=== PATIENT | male | born 1985 | race Caucasian/White ===

== ENCOUNTER 2017-11-20 05:13 | Day surgery (SDC) | payer BC ==
[2017-11-05 13:51] VITALS: BMI 30.5
[2017-11-20] MEDS ORDERED: ROPIVACAINE HCL 0.5% 30ML VIAL ONE (07:58)
--- NOTE | 2017-11-20 08:16 | HP ---
Satellite [facility] - Chief Complaint Chief Complaint: left shoulder pain, instability - Past Medical History Allergies/Adverse Reactions: Allergies Allergy/AdvReac Type Severity Reaction Status Date / Time No Known Drug Allergies Allergy Verified 11/05/17 13:43 - Current Medications Current Medications: Home Medications Medication Instructions Recorded Oxycodone HCl/Acetaminophen 1 - 2 tab PO Q6H #50 tab MDD 8 11/20/17 [Percocet 5-325 mg Tablet] Satellite Physical Exam - Physical Examination Vital Signs: Vital Signs Period Temp Pulse Resp BP Sys/Nicole Pulse Ox Last 24 Hr 97.9 F 72 18 131/76 98 General Appearance: Well Nourished, Well Developed, Alert & Oriented x3 ENT: Clear Lung: Normal air movement Heart: Regular rate & rhythm Extremities: Other (left shoulder- + ttp, decr rom, + apprehension, + cruzito, + obriens, nvi MRI + labral tear) Neurological: Intact, Alert, Oriented Satellite Impression/Plan - Impression/Plan Impression: left shoulder internal derangement Operative Procedure: left shoulder arthroscopy with labral repair Date to be Performed: 11/20/17
[2017-11-20] MEDS ORDERED: ceFAZolin SODIUM 1 GM VIAL IVPB ONE (08:24)
--- NOTE | 2017-11-20 10:32 | OP ---
Operative Note - Note: Operative Date: 11/20/17 ([facility]) Pre-Operative Diagnosis: left shoulder internal derangement Operation: left shoulder arthroscopy with labral repair and removal of loose body Post-Operative Diagnosis: Same as Pre-op Surgeon: Jaspreet Yi [facility] Coordinator: Justin Washburn Anesthesiologist/STUDENT SUCCESS ADVISOR: Neal Heath Anesthesia: General, Local Specimens Removed: shavings, large loose body Estimated Blood Loss (mls): 5 Operative Report Dictated: Yes
[2017-11-20] MEDS ORDERED: ONDANSETRON 4 MG/2 ML VIAL IVPUSH PRN (11:40)
[2017-11-20] MEDS ORDERED: oxyCODONE HCL 5 MG TABLET PO PRN (11:40)
[2017-11-20] MEDS ORDERED: LACTATED RINGERS SOLUTION 1,000 ML IV SCH (11:45)
[2017-11-20 12:47] VITALS: TEMP 98.2
[2017-11-20 13:56] VITALS: BP 123/68; PULSE 76
--- NOTE | 2017-11-20 14:02 | OP ---
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 PROCEDURE: Left labral repair as well as removal of large loose body. SURGICAL ATTENDING: Jaspreet Yi MD BUSINESS AND FINANCIAL COUNSEL: DEJA Gibson ANESTHESIA: Regional and general. CLOSURE: Multiple PushLock anchors and FiberStick suture for labrum and capsule, 3-0 nylon for skin. ESTIMATED BLOOD LOSS: Negligible. COMPLICATIONS: None. CONDITION: To recovery room in stable condition. DESCRIPTION OF OPERATIVE PROCEDURE: Patient taken to the operating room on November 20, 2017. Scalene block as well as general anesthesia was administered by the anesthesiologist. IV Kefzol was administered prophylactically prior to the case. Patient was placed in the deep beach-chair position with all prominences well padded. Left shoulder was prepped and draped in the usual sterile fashion. First, a diagnostic arthroscopy of the glenohumeral joint was performed. A posterior portal was made 2 fingerbreadths below the acromion first with a 15 blade followed by a blunt trocar. Circumferential exam of the glenohumeral joint revealed the following: The inferior anteromedial articular cartilage of the glenoid was worn away or fractured off from recurrent dislocations. The rest of the glenoid was intact. The labrum was deficient from 1 o'clock to 6 o'clock. Posterior labrum was intact. Biceps anchor and biceps tendon were intact. Subscapularis was intact to its insertion. The rest of the rotator cuff was also intact to its insertion. There was a large loose body in the axillary pouch. Two anterior portals were made, 1 in the superior triangle and 1 just anterior to the subscapularis tendon. Both were made by a spinal needle followed by a 15 blade and a blunt trocar. A large grasper was used to deliver out a large loose body from the inferior aspect and axillary pouch. Next, the interval between the anteromedial glenoid lip and the capsule was developed. Inferiorly the labrum was completely deficient, but what was left was able to be elevated as was the capsule there to restore a bumper effect to the anterior labrum. The capsule was pulled up, tightening up the anterior capsule as well. This was fixated to the rim of the glenoid by using multiple FiberStick sutures and PushLock anchors. The 2 anterior portals were used to shuttle sutures from 1 to the other and the inferior portal was used to fixate the anchor as it supported a better angle to get that repair. Post repair all the sutures were cut snug. Probing of the repair revealed good fixation anteriorly. The "drive through" was markedly diminished. The shoulder was irrigated. Fluid was drained. The portals were closed and a sterile pressure dressing was applied followed by a shoulder immobilizer. Patient awakened from anesthesia and transferred to recovery room in stable condition. No complications. Estimated blood loss negligible. Jes MUIR/[id number]
--- NOTE | 2017-11-23 15:18 | PATH ---
Surgical Pathology Report Patient Name: JUAN DAVID OCHOA [facility]. Rec. #: [id number] /Age/Gender: 1985 (Age: 32) / M Account: [id number] Location: [facility] SURGICAL Taken: 11/20/2017 Received: 11/20/2017 Reported: 11/23/2017 Physicians: Jaspreet Yi M.D. Specimen(s) Received LEFT SHOULDER SHAVINGS Clinical History Labral tear Final Diagnosis SHOULDER SHAVINGS, LEFT, ARTHROSCOPY AND LABRAL REPAIR: FRAGMENTS OF BENIGN CARTILAGE, SYNOVIUM, SCANT SKELETAL MUSCLE, AND BONE. Electronically Signed Celi Andrews M.D. Gross Description Received in formalin labeled "left shoulder shavings," is a 2.2 x 2.0 x 0.3 cm aggregate of maldonado soft tissue fragments. The specimen is entirely submitted in one cassette. /11/20/201711/20/2017
== END 2017-11-20 14:09 | disposition home or self-care (01) ==
LOC: JASU-SURG 05:13
PROVIDERS: ATTEND Orthopaedic Surgery
PROC: 0RCK4ZZ Extirpation of Matter from Left Shoulder Joint, Percutaneous Endoscopic Approach (ICD-10-PCS; 2017-11-20)
PROC: 0RQK4ZZ Repair Left Shoulder Joint, Percutaneous Endoscopic Approach (ICD-10-PCS; principal; 2017-11-20 08:45)
DX: M24.412 Recurrent dislocation, left shoulder (principal); S43.492D Other sprain of left shoulder joint, subsequent encounter; X58.XXXD Exposure to other specified factors, subsequent encounter
CPT/HCPCS: 88304-TC; 94760